=== PATIENT | female | born 1965 | race Caucasian/White ===

== ENCOUNTER → 2019-03-23 | Outpatient (CLI) | payer MEDICARE ==
[~2019-03-23] MED LIST: GABADONE CAPSU1 EACH; KLONOPIN0.5 MG; TRAZODONE HCL100 MG; ZOCOR5 MG
--- NOTE | 2019-03-23 17:26 | Diagnostic Imaging Report ---
EXAMINATION: CHEST 2 VIEWS INDICATION: Bronchitis COMPARISON: None FINDINGS: LINES/TUBES:None LUNGS:The lungs are hyperinflated. Bilateral emphysematous changes. No focal consolidation or pulmonary edema. 8mm left midlung zone lateral calcified granuloma. PLEURA:No pleural effusion or pneumothorax. MEDIASTINUM:The cardiomediastinal silhouette appears normal in size and shape. BONES/SOFT TISSUES: Partially visualized cervical spine fusion hardware. Lumbar spine fusion hardware and posterior thoracic spine hardware. ABDOMEN:No free air under the diaphragm. IMPRESSION: Hyperinflated lungs. No focal pneumonia or pulmonary edema. Signed by: Haylee Burnett MD on 03/23/2019 5:23 PM
== END ==
LOC: RAD 14:55
PROVIDERS: ATTEND Family Medicine
DX: J40 Bronchitis, not specified as acute or chronic (principal)
CPT/HCPCS: 71046

== ENCOUNTER → 2019-07-09 | Outpatient (CLI) | payer OTHER ==
[~2019-07-09] MED LIST changes: +CBD OIL PO; +IOPAMIDOL 370 MG/ML 200 ML INFUS..BTL INJ ONE; +MACROBID 100 M100 MG PO; +NEURONTIN400 MG PO; +SODIUM CHLORIDE 0.9% 50ML 50 ML ONE; +ULTRAM50 MG PO; +XTAMPZA ER18 MG PO
--- NOTE | 2019-07-09 15:27 | Diagnostic Imaging Report ---
EXAM: CT Chest WITH intravenous contrast 07/09/2019 12:55 PM INDICATION: COPD COMPARISON: Chest CT of 06/05/2019 TECHNIQUE: Chest was scanned utilizing a multidetector helical scanner from the lung apex through the level of the adrenal glands after administration of IV contrast. Coronal and sagittal reformations were obtained. Routine protocol was performed. IV CONTRAST: 100mL Isovue 370 RADIATION DOSE: Total DLP: 226.3 mGy*cm. Dose modulation, iterative reconstruction, and/or weight based adjustment of the mA/kV was utilized to reduce the radiation dose to as low as reasonably achievable. COMPLICATIONS: None FINDINGS: LINES/ TUBES: None. LUNGS AND AIRWAYS: The lungs are hyperinflated. Bilateral upper lobe predominant centrilobular emphysema. Mild biapical pleural parenchymal thickening/scarring. The central airways are patent. 1 cm left upper lobe calcified granuloma. No suspicious pulmonary nodules. PLEURA: The pleural spaces are clear. HEART AND MEDIASTINUM: The thyroid gland is normal. No mediastinal, hilar or axillary lymphadenopathy. The heart is normal in size.. Small pericardial effusion. Mild scattered atherosclerotic calcifications of the coronary arteries and aorta. UPPER ABDOMEN: Unchanged intrahepatic biliary ductal dilation. No other acute findings. BONES: Partially visualized spinal fusion hardware. No acute osseous injury. Dextroconvex thoracic spine curvature. Mild multilevel degenerative changes. No suspicious lytic or blastic lesions. SOFT TISSUES: Bilateral saline breast implants. IMPRESSION: Hyperinflated lungs and bilateral upper lobe predominant centrilobular emphysema, in keeping with known diagnosis of COPD. Unchanged intrahepatic biliary ductal dilation status post cholecystectomy. Signed by: Haylee Burnett MD on 07/09/2019 3:24 PM
== END ==
LOC: CT 12:49
PROVIDERS: ATTEND Family Medicine
DX: J44.9 Chronic obstructive pulmonary disease, unspecified (principal)
CPT/HCPCS: 71260; Q9967

== ENCOUNTER → 2020-02-01 | Outpatient (CLI) | payer MEDICARE ==
[~2020-02-01] MED LIST changes: -IOPAMIDOL 370 MG/ML 200 ML INFUS..BTL INJ ONE; -SODIUM CHLORIDE 0.9% 50ML 50 ML ONE
--- NOTE | 2020-02-01 13:57 | Diagnostic Imaging Report ---
Exam: Bone mineral density study. History: Osteopenia. Comparison: None Discussion: Evaluation of the left hip and lumbar spine was performed utilizing DEXA Hologic bone densitometer. The study is technically adequate. Left hip total bone mineral density: 0.659gm/cm2, T-score is -2.3, Z-score is -1.5. Left hip femoral neck bone mineral density: 0.504gm/cm2, T-score is -3.1, Z-score is -2.0. Lumbar spine total bone mineral density:0.958gm/cm2, T-score is-0.2, Z-score is 0.9. Impression: 1. Osteoporosis of the left hip, fracture risk is high 2. Normal bone mineral density of the lumbar spine, fracture risk is not increased. Least significant change (LSC) for bone mineral density as provided by seed cleaning manager is 0.023 g/cm2 for lumbar spine and 0.027 g/cm2 for total hip. 10 -year fracture risk per WHO Fracture Risk Assessment Tool (FRAX) for: Not reported because patient treated for osteoporosis. Some T-scores at or below -2.5 The patient's fracture risk is compared to an age-matched control. Medical evaluation for secondary causes of low bone bone mineral density may be appropriate. Correlate clinically for the necessity and timing of the next bone mineral density study. Signed by: Dr. Esvin Wang M.D. on 02/01/2020 1:53 PM
== END ==
LOC: DX 12:54
PROVIDERS: ATTEND Family Medicine
DX: M81.0 Age-related osteoporosis without current pathological fracture (principal)
CPT/HCPCS: 77080

== ENCOUNTER → 2020-04-02 | Outpatient (CLI) | payer MEDICARE ==
--- NOTE | 2020-04-02 11:15 | Diagnostic Imaging Report ---
TECHNIQUE: Magnetic resonance imaging of the RIGHT KNEE was performed WITHOUT injected contrast. HISTORY: Right knee pain COMPARISON: None available. FINDINGS: LIGAMENTS AND TENDONS: ACL: Intact PCL: Intact Collateral ligaments: Intact Iliotibial band: Unremarkable Popliteal tendon: Intact Extensor mechanism: Intact JOINT: Menisci: Medial: Horizontal tear of the body and posterior horn. Lateral: Horizontal tear involving the anterior horn, body, and posterior horn. Articular Cartilage: Medial Compartment: Partial-thickness cartilage loss Lateral Compartment: Partial-thickness cartilage loss Patellofemoral Compartment: Partial-thickness cartilage loss Joint Fluid: The amount of fluid within the joint is within physiologic limits. BONE: Patchy bone marrow within the distal femoral and proximal tibial metaphysis. SOFT TISSUES: Lobulated ganglion in the tibiofibular joint space. IMPRESSION: Medial and lateral meniscus horizontal tearing with partial thickness tricompartmental cartilage loss Signed by: Dr. Bigg Rhoades M.D. on 04/02/2020 11:11 AM
== END ==
LOC: MRI 09:49
PROVIDERS: ATTEND Specialist
DX: S83.241A Other tear of medial meniscus, current injury, right knee, initial encounter (principal)

== ENCOUNTER → 2020-11-12 | Outpatient (CLI) | payer MEDICARE | LOC: MAMMO 10:53 | PROVIDERS: ATTEND Family Medicine | DX: Z12.31 Encounter for screening mammogram for malignant neoplasm of breast (principal) | CPT/HCPCS: 77067 ==

== ENCOUNTER → 2020-12-17 | Day surgery (SDC) | payer MEDICARE ==
[2020-12-15 15:23] LABS: BASOPHILS # (AUTO) 0.1 (0.0-0.1); BASOPHILS % 1.1 % (0.0-1.0); EOSINOPHILS # (AUTO) 0.6 (0.0-0.4); EOSINOPHILS % 6.4 % (0.0-6.0); HEMATOCRIT 35.4 % (34.2-44.1); HEMOGLOBIN 11.4 g/dL (12.0-16.0); LYMPHOCYTES # (AUTO) 3.2 (1.0-3.2); LYMPHOCYTES % 36.3 % (18.0-39.1); MEAN CORPUSCULAR HEMOGLOBIN 31.4 pg (28-32); MEAN CORPUSCULAR HGB CONC 32.2 g/dL (31-35); MEAN CORPUSCULAR VOLUME 97.5 fL (81-99); MONOCYTES # (AUTO) 0.8 (0.2-0.8); MONOCYTES % 8.9 % (4.4-11.3); NEUTROPHILS # (AUTO) 4.2 (2.1-6.9); NEUTROPHILS % 47.2 % (38.7-80.0); PLATELET COUNT 193 x10e3/uL (140-360); RED BLOOD COUNT 3.63 x10e6/uL (3.6-5.1); RED CELL DISTRIBUTION WIDTH 12.3 % (11.7-14.4)
[2020-12-15 15:50] LABS: ANION GAP 14.9 mmol/L (8-16); CREATININE, SERUM 0.69 mg/dL (0.57-1.11); POTASSIUM 3.9 mmol/L (3.5-5.1)
[~2020-12-17] MED LIST changes: +AZITHROMYCIN250 MG PO; +BELLADONNA/OPIUM 30 MG SUPP RC ONE; +CEFTRIAXONE 1 GM VIAL ONE; +DEXAMETHASONE SOD PHOS INJ 4 MG/ML VIAL ONE; +FENTANYL CITRATE/PF 100MCG/2 ML INJ ONE; +FENTANYL1 EAC1 TOP; +IOPAMIDOL 300MG/ML 50ML INFUS..BTL IV ONE; +LIDOCAINE HCL 2% LOCAL INJ 5 ML SDV VIAL INJ ONE; +MIDAZOLAM HCL 2 MG/2 ML VIAL ONE; +ONDANSETRON HCL INJ 2MG/ML 2ML 2 MG/ML VIAL ONE; +ONDANSETRON ODT4 MG PO; +POVIDONE IODINE 0.05% 0.05 % ML PO ONE; +PREDNISONE20 MG PO; +PROPOFOL IV EMULSION 10 MG/ML 20 ML VIAL ONE; +SEVOFLURANE INHAL SOLN 250 ML PEN BTL ONE; +SODIUM CHLORIDE 0.9% 50ML 50 ML ONE; +VENTOLIN HFA18 GM INH; -ZOCOR5 MG; +ZOCOR5 MG PO
[2020-12-17 10:27] VITALS: BP 104/67
== END | disposition home or self-care (01) ==
LOC: OR 08:27
PROVIDERS: ATTEND Urology
DX: N30.10 Interstitial cystitis (chronic) without hematuria (principal); N26.1 Atrophy of kidney (terminal); N35.92 Unspecified urethral stricture, female; N39.0 Urinary tract infection, site not specified; N81.10 Cystocele, unspecified; N81.6 Rectocele; N95.2 Postmenopausal atrophic vaginitis; Z01.810 Encounter for preprocedural cardiovascular examination; Z01.812 Encounter for preprocedural laboratory examination; Z01.818 Encounter for other preprocedural examination; Z20.822 Contact with and (suspected) exposure to COVID-19
CPT/HCPCS: 36415; 52260; 71046; 74420; 80048; 85025; 93005; C1758; J0696; J1100; J2001; J2250; J2405; J2704; J3010; Q9967; U0002

== ENCOUNTER 2021-01-07 19:04 | Emergency (ER) | payer MEDICARE ==
[~2021-01-07] VITALS: Ht 165.1 cm; Wt 43.5 kg
[~2021-01-07 19:04] MED LIST changes: -AZITHROMYCIN250 MG PO; -BELLADONNA/OPIUM 30 MG SUPP RC ONE; -CEFTRIAXONE 1 GM VIAL ONE; -DEXAMETHASONE SOD PHOS INJ 4 MG/ML VIAL ONE; -FENTANYL CITRATE/PF 100MCG/2 ML INJ ONE; -IOPAMIDOL 300MG/ML 50ML INFUS..BTL IV ONE; -LIDOCAINE HCL 2% LOCAL INJ 5 ML SDV VIAL INJ ONE; -MIDAZOLAM HCL 2 MG/2 ML VIAL ONE; -ONDANSETRON HCL INJ 2MG/ML 2ML 2 MG/ML VIAL ONE; -ONDANSETRON ODT4 MG PO; -POVIDONE IODINE 0.05% 0.05 % ML PO ONE; -PREDNISONE20 MG PO; -PROPOFOL IV EMULSION 10 MG/ML 20 ML VIAL ONE; -SEVOFLURANE INHAL SOLN 250 ML PEN BTL ONE; -SODIUM CHLORIDE 0.9% 50ML 50 ML ONE; -VENTOLIN HFA18 GM INH
[2021-01-07] MEDS ORDERED: AZITHROMYCIN 250 MG TAB PO STA (19:43)
[2021-01-07] MEDS ORDERED: DEXAMETHASONE SOD PHOS 10 MG/1 ML VIAL IM STA (19:43)
[2021-01-07] MEDS ORDERED: DEXAMETHASONE SOD PHOS INJ 4 MG/ML VIAL IM STA (19:50)
[2021-01-07] MEDS ORDERED: DEXAMETHASONE SOD PHOS INJ 4 MG/ML VIAL ONE (20:03)
[2021-01-07] MEDS ORDERED: ONDANSETRON HCL 4 MG ORAL DISINTEGRATING TAB PO ONE (20:45)
[2021-01-07] MEDS ORDERED: ONDANSETRON HCL 4 MG ORAL DISINTEGRATING TAB ONE (20:50)
[2021-01-07] MEDS ORDERED: PREDNISONE20 MG PO ×2 (20:57→21:01)
[2021-01-07] MEDS ORDERED: AZITHROMYCIN250 MG PO ×2 (20:57→21:01)
[2021-01-07] MEDS ORDERED: ONDANSETRON ODT4 MG PO ×2 (20:57→21:01)
[2021-01-07] MEDS ORDERED: VENTOLIN HFA18 GM INH ×2 (20:57→21:01)
== END 2021-01-07 21:00 | disposition home or self-care (01) ==
LOC: FSED 19:10
DX: R50.9 Fever, unspecified (principal); R05 Cough; U07.1 COVID-19; J98.8 Other specified respiratory disorders; E78.00 Pure hypercholesterolemia, unspecified; F41.9 Anxiety disorder, unspecified; M54.2 Cervicalgia; M54.9 Dorsalgia, unspecified; F17.210 Nicotine dependence, cigarettes, uncomplicated
CPT/HCPCS: 71046; 99283; J1100; Q0162

== ENCOUNTER → 2022-02-11 | Outpatient (CLI) | payer MEDICARE ==
[~2022-02-11] MED LIST changes: +AZITHROMYCIN250 MG PO; +ONDANSETRON ODT4 MG PO; +PREDNISONE20 MG PO; +VENTOLIN HFA18 GM INH
== END ==
LOC: RAD 12:33
PROVIDERS: ATTEND Internal Medicine
DX: J15.9 Unspecified bacterial pneumonia (principal); J44.9 Chronic obstructive pulmonary disease, unspecified
CPT/HCPCS: 71046

== ENCOUNTER → 2022-06-21 | Outpatient (CLI) | payer MEDICARE | LOC: RAD 11:57 | PROVIDERS: ATTEND Internal Medicine | DX: M25.551 Pain in right hip (principal) ==